=== PATIENT | female | born 1995 | race Two or more races ===

== ENCOUNTER 2017-12-11 14:32 | Emergency (ER) | payer MEDICAID ==
[~2017-12-11] VITALS: Ht 157.5 cm; Wt 59.9 kg
[2017-12-11 14:46] VITALS: BP 123/65
[2017-12-11 15:32] LABS: Urine Bacteria NONE SEEN /hpf (None Seen); Urine Blood 3+ /uL (Negative); Urine Mucus MODERATE (None Seen); Urine Specific Gravity 1.031 (1.001-1.035); Urine WBC 34 /hpf (0 - 5)
== END 2017-12-11 16:31 | disposition home or self-care (01) ==
LOC: ER 14:32
DX: S29.012A Strain of muscle and tendon of back wall of thorax, initial encounter (principal); X58.XXXA Exposure to other specified factors, initial encounter; Y93.89 Activity, other specified; Y99.8 Other external cause status; Y92.89 Other specified places as the place of occurrence of the external cause
CPT/HCPCS: 72070; 81001; 81025